=== PATIENT | male | born 2005 | race Caucasian/White ===

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

== ENCOUNTER 2023-04-18 11:07 | Emergency (ER) | payer OTHER, SELFPAY ==
--- NOTE | ~2023-04-18 | XR_ITS ---
EXAMINATION: XR soft tissue neck INDICATION: Throat/esophagus discomfort TECHNIQUE: Two views of the neck soft tissues are obtained. COMPARISON: None available FINDINGS: The neck soft tissues are unremarkable. The prevertebral soft tissues are normal. There is straightening of the cervical spine which can be positional or due to muscular spasm. IMPRESSION: 1. Unremarkable neck soft tissues. Reviewed, dictated and finalized at location F. [employer]
[2023-04-18 11:09] VITALS: BP 173/94; PULSE 113; RESP 16; TEMP 36.5; O2SAT 100
--- NOTE | 2023-04-18 12:12 | ED.GENADULT ---
HPI - General Adult General Chief complaint: Unspecified Stated complaint: clindamycin stuck in throat Time Seen by Provider: 04/18/23 11:17 Source: patient Mode of arrival: ambulatory Limitations: no limitations History of Present Illness HPI narrative: Doroteo is a 18-year-old male patient presenting to the ER today with complaints of burning of his throat. He reports 2 clindamycin pills got stuck in his throat 2 days ago. Reports that they have gone down however he is having some discomfort in his throat still. Taking the clindamycin due to an ear infection. He contacted his primary care provider and they told him he would need to come in for evaluation to determine if he had nolasco in his esophagus. He is able to swallow appropriately with mild pain. Voice is hoarse. Related Data Home Medications Medication Instructions Recorded Confirmed 5-hydroxytryptophan (5-HTP) 50 mg 50 mg PO BID 03/26/23 capsule cholecalciferol (vitamin D3) 50 50 mcg PO DAILY 03/26/23 mcg (2,000 unit) capsule dexmethylphenidate 10 mg tablet 10 mg PO DAILY 03/26/23 (Focalin) duloxetine 30 mg capsule,delayed 30 mg PO DAILY 03/26/23 release (Cymbalta) Allergies Allergy/AdvReac Type Severity Reaction Status Date / Time latex Allergy Intermediate Hives Verified 04/18/23 11:33 Penicillins Allergy Unknown Rash Verified 04/18/23 11:33 Sulfa (Sulfonamide Allergy Unknown Rash Verified 04/18/23 11:33 Antibiotics) NSAIDS (Non-Steroidal Allergy Anaphylactic Verified 04/18/23 11:33 Anti-Inflamma Shock vancomycin AdvReac Rash Verified 04/18/23 11:33 Review of Systems Review of Systems: Pertinent positives per HPI. Patient denies any fever, chills, rash, headache, visual changes, dizziness, cough, runny nose, shortness of breath, chest pain, palpitations, nausea, vomiting, diarrhea, constipation, abdominal pain, or any urinary issues. [facility] Past Medical History Medical History Allergies Arthritis Asthma Chronic paraplegia Clavicle fracture Eczema Morbid obesity due to excess calories Personal history of pathologic fracture Pinched nerve Surgical History Surgical History Hx of tympanostomy tubes Family History Family History Grandparent Alcoholism Asthma Cancer Diabetes mellitus Hypertension Depression Anxiety Cerebrovascular accident Father Asthma Depression Anxiety Sibling Anxiety Depression Social History Social History Smoking packs per day: 0 Smoking cigarettes per day: 0.0 Years smoked: 0 Smoking pack-years: 0.00 Smoking status: Never smoker Second hand tobacco smoke exposure: No Alcohol intake: never Substance use: never Substance use type: does not use Do You Feel Safe in your Home?: Yes Lack of Transportation: No Lack of Food: Sometimes True Current Housing: I Have Housing Concerned About Future Housing: Decline to Answer Difficulty Paying Gas/Electric Bills: Decline to Answer Difficulty Paying for Meds: Decline to Answer Currently Unemployed: Decline to Answer Education: High School Diploma/GED Difficulty w/ Childcare or Family Care: Decline to Answer Living arrangements: with family Gender identity (if verbalized by the patient): Male Comments At the time of my signature, I reviewed and agree with the nursing past medical, surgical, social, and family history. There is no relevant family history pertinent to the patient complaint. Exam Narrative: General: Well-developed, obese, in no apparent distress Head: Normocephalic, atraumatic Eyes: Pupils equally round and reactive to light bilaterally, EOM intact, sclera and conjunctive clear, no discharge, lids normal Ears: TMs intact and clear, ear canal
[2023-04-18 13:09] VITALS: BP 160/90; PULSE 100; RESP 18; O2SAT 100
== END 2023-04-18 13:11 | disposition home or self-care (01) ==
PROVIDERS: Emergency Provider Nurse Practitioner Family; PCP Internal Medicine Infectious Disease
DX: R07.0 Pain in throat (principal); G82.20 Paraplegia, unspecified; J45.909 Unspecified asthma, uncomplicated; E66.01 Morbid (severe) obesity due to excess calories; Z68.42 Body mass index [BMI] 45.0-49.9, adult; M19.90 Unspecified osteoarthritis, unspecified site
CPT/HCPCS: 70360; 99283

== ENCOUNTER 2023-05-10 21:29 | Emergency (ER) | payer OTHER, SELFPAY ==
--- NOTE | ~2023-05-10 | XR_ITS ---
EXAMINATION: XR chest 2V Exam Date/Time: 05/10/2023 21:44 FOOD STOREROOM CLERK HISTORY: displaced L rib Comparison: 09/18/2022. RESULT: Lines, tubes, and devices: None. Lungs and pleura: Low volumes with crowding, particularly in the lateral views, otherwise clear. Cardiomediastinal silhouette: Stable. Other: No acute osseous or upper abdominal finding. IMPRESSION: No acute cardiopulmonary process. Reviewed, dictated and finalized at location K. STOREROOM CLERK
--- NOTE | ~2023-05-10 | CT_ITS ---
EXAMINATION: CTA chest PE protocol DATE: 05/11/2023 01:54 INDICATION: Chest pain. TECHNIQUE: Computed tomography angiography (CTA) of the chest was performed with 100 mL Omnipaque-350 intravenous contrast timed to evaluate the pulmonary arteries. Coronal maximum intensity projection 3D-reconstructions were created by the technologist. Automated exposure control and iterative reconst ruction technique were employed. The dose-length product was 1071.66 mGy-cm. COMPARISON: CT abdomen and pelvis 07/10/2021 FINDINGS: There is no pneumonia or pleural effusion. The heart size is normal. No pericardial effusio n. There is no pulmonary embolus. There is diffuse hepatic steatosis. There is mild thoracic spondylo sis. IMPRESSION: 1. No pulmonary embolus. Sensitivity is moderately decreased by motion artifact. 2. Diffuse hepatic steatosis. Reviewed, dictated and finalized at location A. ATING MACHINE TYPIST IMPRESSION: 1. No pulmonary embolus. Sensitivity is moderately decreased by motion artifact . 2. Diffuse hepatic steatosis.
[2023-05-10 21:30] VITALS: BP 127/75; PULSE 121; RESP 18; TEMP 38.1; O2SAT 98
[2023-05-11 00:12] VITALS: TEMP 37.2
--- NOTE | 2023-05-11 00:41 | ECG_ITS ---
Measurements Intervals [place] Rate: 122 P: 40 [place]: 142 QRS: 92 QRSD: 85 T: 48 QT: 300 QTc: 428 Interpretive Statements SINUS TACHYCARDIA BORDERLINE RIGHT AXIS DEVIATION [QRS AXIS > 90] NONSPECIFIC ST & T-WAVE ABNORMALITY ABNORMAL RHYTHM ECG NO PREVIOUS ECG AVAILABLE FOR COMPARISON Electronically Signed On 05-11-2023 8:47:01 OCCUPATIONAL HEALTH NURSE MANAGER by Bhargav Soto M.D.
--- NOTE | 2023-05-11 00:48 | ED.GENADULT ---
HPI - General Adult General Chief complaint: Unspecified Stated complaint: mx complaints after rib put back in place Time Seen by Provider: 05/11/23 00:18 History of Present Illness HPI narrative: 18-year-old male with a history of a connective tissue disorder reports for evaluation his father at bedside for bilateral chest pain started today. Patient states he woke up this morning with a dislocated left rib. He went to his physical therapist to put it back into place and advised to go to the ER if he developed fever, worsening pain or nausea. Patient states he has developed all of the symptoms since he was discharged from his physical therapist earlier today. States he had a fever of 100.2 at home, is 100.6 upon arrival to the ER. He is reporting pain to his bilateral ribs that wraps around to his back, worse on the left side. States the pain is worse with any sort of movement. States he has a history of prior rib dislocations in the past, however he has never had issues like this before. Related Data Home Medications Medication Instructions Recorded Confirmed 5-hydroxytryptophan (5-HTP) 50 mg 50 mg PO BID 03/26/23 capsule cholecalciferol (vitamin D3) 50 50 mcg PO DAILY 03/26/23 mcg (2,000 unit) capsule dexmethylphenidate 10 mg tablet 10 mg PO DAILY 03/26/23 (Focalin) duloxetine 30 mg capsule,delayed 30 mg PO DAILY 03/26/23 release (Cymbalta) Allergies Allergy/AdvReac Type Severity Reaction Status Date / Time latex Allergy Intermediate Hives Verified 04/18/23 11:33 Penicillins Allergy Unknown Rash Verified 04/18/23 11:33 Sulfa (Sulfonamide Allergy Unknown Rash Verified 04/18/23 11:33 Antibiotics) NSAIDS (Non-Steroidal Allergy Anaphylactic Verified 04/18/23 11:33 Anti-Inflamma Shock vancomycin AdvReac Rash Verified 04/18/23 11:33 Review of Systems Review of Systems: CONSTITUTIONAL: Denies fever, chills, or sweats. EYES: Denies visual changes, redness, or discharge. ENT: Denies rhinorrhea, congestion, sore throat, or otalgia. CARDIOVASCULAR: See HPI RESPIRATORY: Denies cough or dyspnea. GASTROINTESTINAL: Denies abdominal pain, nausea, vomiting, or diarrhea. GENITOURINARY: Denies dysuria or hematuria. SKIN: Denies rash or itching. MUSCULOSKELETAL: See HPI NEUROLOGIC: Denies headache, numbness, or weakness. PSYCHIATRIC: Denies anxiety or depression. [facility] Past Medical History Medical History Allergies Arthritis Asthma Chronic paraplegia Clavicle fracture Eczema Morbid obesity due to excess calories Personal history of pathologic fracture Pinched nerve Surgical History Surgical History Hx of tympanostomy tubes Family History Family History Grandparent Alcoholism Asthma Cancer Diabetes mellitus Hypertension Depression Anxiety Cerebrovascular accident Father Asthma Depression Anxiety Sibling Anxiety Depression Social History Social History Smoking packs per day: 0 Smoking cigarettes per day: 0.0 Years smoked: 0 Smoking pack-years: 0.00 Smoking status: Never smoker Second hand tobacco smoke exposure: No Alcohol intake: never Substance use: never Substance use type: does not use Do You Feel Safe in your Home?: Yes Lack of Transportation: No Lack of Food: Sometimes True Current Housing: I Have Housing Concerned About Future Housing: Decline to Answer Difficulty Paying Gas/Electric Bills: Decline to Answer Difficulty Paying for Meds: Decline to Answer Currently Unemployed: Decline to Answer Education: High School Diploma/GED Difficulty w/ Childcare or Family Care: Decline to Answer Living arrangements: with family Gender identity (if verbalized by the patient): Male Exam Narrati
[2023-05-11] MEDS: MORPHINE SULFATE (*CRX) 4 MG/ML INJ IV PUSH (01:00)
[2023-05-11] MEDS: SODIUM CHLORIDE 0.9% IV 1,000 ML 999 ML IV CONT (01:00)
[2023-05-11 01:05] LABS: Basophils Percent Auto 0.4 % (0.2-1.2); Eosinophils Percent Auto 0.4 % (0-4.4); Hematocrit 48.7 % (42.0-52.0); Hemoglobin 16.3 g/dL (14.0-18.0); Immature Granulocyte Absolute 0.02 K/mm3 (0.00-0.031); Immature Granulocyte Percent A 0.2 % (0-0.5); Lymphocytes Absolute Auto 1.16 K/mm3 (0.9-3.2); Lymphocytes Percent Auto 12.7 % (18.3-44.2); Mean Corpuscular HGB Conc 33.5 g/dl (32-36); Mean Corpuscular Hemoglobin 27.8 pg (26-34); Mean Corpuscular Volume 83.1 fl (80-100); Monocytes Absolute Auto 0.5 K/mm3 (0.1-0.6); Monocytes Percent Auto 5.3 % (2.6-8.5); Neutrophils Absolute Auto 7.4 K/mm3 (1.3-6.7); Platelet Count Result 320 k/mm3 (150-375); Red Blood Count 5.86 M/mm3 (4.6-6.20); Red Cell Distribution Width 13.4 % (11.5-14.5); White Blood Count 9.2 K/mm3 (4.5-10.0)
[2023-05-11 01:16] LABS: Alanine Aminotransferase 72 U/L (6-50); Albumin Level 4.9 g/dL (3.5-5.1); Alkaline Phosphatase 75 U/L (38-126); Anion Gap 7 mmol/L (8-16); Aspartate Amino Transferase 35 U/L (17-59); Bilirubin,Total 0.7 mg/dL (0.2-1.3); Blood Urea Nitrogen 15 mg/dL (9-20); Calcium 9.3 mg/dL (8.4-10.2); Carbon Dioxide 29 mmol/L (22-30); Chloride 103 mmol/L (98-107); Estimated CRCL calculation 160 ml/min; Estimated Glomerular Filt Rate > 60; Glucose 102 mg/dL (65-110); Potassium 3.8 mmol/L (3.4-5.0); Sodium 139 mmol/L (137-145)
[2023-05-11 01:28] LABS: NT Pro B Type Natriuretic Pept < 20 pg/mL (19.9-100); Troponin I < 0.012 ng/mL (0.000-0.034)
[2023-05-11 01:41] LABS: Influenza A QL RT-PCR Negative (Negative); Influenza B QL RT-PCR Negative (Negative); RSV RNA, RT-PCR Negative (Negative); SARS-CoV-2 RNA PCR Negative (Negative)
[2023-05-11 01:58] VITALS: BP 143/99; PULSE 88; RESP 18; O2SAT 99
[2023-05-11 03:01] LABS: Appearance Urine Clear (Clear); Bilirubin Urine Negative (Negative); Blood Urine Negative (Negative); Color Urine Yellow (Yellow); Glucose Urine UA Negative (Negative); Ketones Urine Negative (Negative); Leukocyte Esterase Ur Negative LEU/UL (Negative); Nitrate Urine Negative (Negative); Protein Urine Negative (Negative); Urobilinogen Urine 0.2 mg/dL (<2.0); pH Urine 5.5 (5.0-9.0)
[2023-05-11 03:13] LABS: Add Urine Microscopic? NO
[2023-05-11 03:45] VITALS: BP 143/99; PULSE 98; RESP 18; TEMP 37.1; O2SAT 99
== END 2023-05-11 03:47 | disposition home or self-care (01) ==
PROVIDERS: Emergency Provider Physician Assistant; PCP Internal Medicine Infectious Disease
DX: R07.89 Other chest pain (principal); Z20.822 Contact with and (suspected) exposure to COVID-19; J45.909 Unspecified asthma, uncomplicated; G82.20 Paraplegia, unspecified; E66.01 Morbid (severe) obesity due to excess calories; Z68.42 Body mass index [BMI] 45.0-49.9, adult; M19.90 Unspecified osteoarthritis, unspecified site; Z96.22 Myringotomy tube(s) status
CPT/HCPCS: 36415; 71046; 71275; 80053; 81003; 83880; 84484; 85025; 87637; 93005; 96361; 96374; 99284; J2270; J7030; Q9967

== ENCOUNTER 2023-08-04 12:40 | Outpatient (CLI) | payer OTHER, SELFPAY ==
--- NOTE | 2023-08-04 13:30 | NEURO_ITS ---
Impression: # Complains of neck pain and numbness of upper extremities. # Normal Nerve Conduction Study without evidence of Carpal Tunnel Syndrome or ulnar neuropathy. # Normal needle/EMG exam proximally and distally. # Clinical correlation recommended. Nerve Conduction Studies Anti Sensory Summary Table Stim Site NR Peak (ms) P-T Amp (?V) Site1 Site2 Delta-P (ms) Dist (cm) Antonio (m/s) Left Median Anti Sensory (2-3nd Digit) Wrist 2.8 63.6 Wrist 2-3nd Digit 2.8 14.0 50 Wrist 2.8 56.3 Wrist 2-3nd Digit 2.8 14.0 50 Right Median Anti Sensory (2-3nd Digit) Wrist 3.0 56.5 Wrist 2-3nd Digit 3.0 14.0 47 Wrist 2.7 55.5 Wrist 2-3nd Digit 3.0 14.0 47 Left Radial Anti Sensory (Base 1st Digit) Wrist 1.8 29.3 Wrist Base 1st Digit 1.8 0.0 Right Radial Anti Sensory (Base 1st Digit) Wrist 2.7 26.1 Wrist Base 1st Digit 2.7 0.0 Left Ulnar Anti Sensory (5th Digit) Wrist 2.5 75.0 Wrist 5th Digit 2.5 14.0 56 Right Ulnar Anti Sensory (5th Digit) Wrist 2.6 64.0 Wrist 5th Digit 2.6 14.0 54 Motor Summary Table Stim Site NR Onset (ms) O-P Amp (mV) Site1 Site2 Delta-0 (ms) Dist (cm) Antonio (m/s) Left Median Motor (Abd Poll Brev) Wrist 3.1 4.4 Elbow Wrist 5.0 31.0 62 Elbow 8.1 3.8 Right Median Motor (Abd Poll Brev) Wrist 3.5 5.7 Elbow Wrist 4.9 31.0 63 Elbow 8.4 3.1 Left Ulnar Motor (Abd Dig Minimi) Wrist 2.7 7.3 A Elbow Wrist 5.8 35.0 60 A Elbow 8.5 6.4 Right Ulnar Motor (Abd Dig Minimi) Wrist 2.5 6.6 A Elbow Wrist 5.6 33.0 59 A Elbow 8.1 6.4 F Wave Studies NR F-Lat (ms) L-R F-Lat (ms) Left Median (Mrkrs) (Abd Poll Brev) 27.41 0.25 Right Median (Mrkrs) (Abd Poll Brev) 27.16 0.25 Left Ulnar (Mrkrs) (Abd Dig Min) 28.21 0.23 Right Ulnar (Mrkrs) (Abd Dig Min) 28.44 0.23 EMG Side Muscle Nerve Root Ins Act Fibs Amp Dur Recrt Comment Right 1stDorInt Ulnar C8-T1 Nml Nml Nml Nml Nml Right Ext Indicis Radial (Post Int) C7-8 Nml Nml Nml Nml Nml Right Ext Digitorum Radial (Post Int) C7-8 Nml Nml Nml Nml Nml Right BrachioRad Radial C5-6 Nml Nml Nml Nml Nml Right PronatorTeres Median C6-7 Nml Nml Nml Nml Nml Right Abd Poll Brev Median C8-T1 Nml Nml Nml Nml Nml Right ABD Dig Min Ulnar C8-T1 Nml Nml Nml Nml Nml Left 1stDorInt Ulnar C8-T1 Nml Nml Nml Nml Nml Left Ext Indicis Radial (Post Int) C7-8 Nml Nml Nml Nml Nml Left Ext Digitorum Radial (Post Int) C7-8 Nml Nml Nml Nml Nml Left BrachioRad Radial C5-6 Nml Nml Nml Nml Nml Left PronatorTeres Median C6-7 Nml Nml Nml Nml Nml Left Abd Poll Brev Median C8-T1 Nml Nml Nml Nml Nml Left ABD Dig Min Ulnar C8-T1 Nml Nml Nml Nml Nml Right Biceps Musculocut C5-6 Nml Nml Nml Nml Nml Right Triceps Radial C6-7-8 Nml Nml Nml Nml Nml Right Deltoid Axillary C5-6 Nml Nml Nml Nml Nml Left Biceps Musculocut C5-6 Nml Nml Nml Nml Nml Left Triceps Radial C6-7-8 Nml Nml Nml Nml Nml Left Deltoid Axillary C5-6 Nml Nml Nml Nml Nml MTDD
== END 2023-08-04 12:41 | disposition home or self-care (01) ==
LOC: ANHNEURO 12:41
PROVIDERS: PCP Internal Medicine Infectious Disease; Visit Provider Internal Medicine Infectious Disease
DX: M54.12 Radiculopathy, cervical region (principal)
CPT/HCPCS: 95886; 95911

== ENCOUNTER 2024-02-03 13:02 | Emergency (ER) | payer OTHER, SELFPAY ==
--- NOTE | ~2024-02-03 | CT_ITS ---
EXAMINATION: CT brain wo con DATE: 02/03/2024 15:45 INDICATION: Headache. TECHNIQUE: Computed tomography (CT) of the head was performed without intravenous contrast. The mA wa s adjusted according to patient size. Iterative reconstruction technique was employed. The dose-lengt h product was 605.33 mGy-cm. COMPARISON: Head CT 12/06/2013 FINDINGS: There is no intracranial hemorrhage, acute infarction, or abnormal intracranial mass lesion . The ventricles are normal in size. The paranasal sinuses are clear. The mastoid air cells are johanny l. The orbits are normal. IMPRESSION: 1. Normal brain. Reviewed, dictated and finalized at location B. IMPRESSION: 1. Normal brain.
--- NOTE | ~2024-02-03 | CT_ITS ---
EXAMINATION: CT cervical spine wo con DATE: 02/03/2024 15:45 INDICATION: Neck pain. TECHNIQUE: Computed tomography (CT) of the cervical spine was performed without intravenous contrast. Automated exposure control and iterative reconstruction technique were employed. The dose-length pro duct was 545.42 mGy-cm. COMPARISON: None FINDINGS: Alignment is normal. Vertebral body heights are normal. Intervertebral disc heights are nor mal. The following disc levels are specifically discussed: C2-C3: There is no uncovertebral joint osteoarthritis. There is mild right facet joint osteoarthritis . There is no neural foraminal stenosis. There is no central canal stenosis. C3-C4: There is no uncovertebral joint osteoarthritis. There is mild left facet joint osteoarthritis. There is no neural foraminal stenosis. There is no central canal stenosis. C4-C5: There is no uncovertebral joint osteoarthritis. There is no facet joint osteoarthritis. There is no neural foraminal stenosis. There is no central canal stenosis. C5-C6: There is no uncovertebral joint osteoarthritis. There is no facet joint osteoarthritis. There is no neural foraminal stenosis. There is no central canal stenosis. C6-C7: There is no uncovertebral joint osteoarthritis. There is no facet joint osteoarthritis. There is no neural foraminal stenosis. There is no central canal stenosis. C7-T1: There is no uncovertebral joint osteoarthritis. There is mild bilateral facet joint osteoarthr itis. There is no neural foraminal stenosis. There is no central canal stenosis. IMPRESSION: 1. Mild cervical facet joint osteoarthritis. Reviewed, dictated and finalized at location B.
[2024-02-03 13:23] VITALS: BP 149/85; PULSE 101; TEMP 36.9; O2SAT 98
--- NOTE | 2024-02-03 15:23 | ED.NECK ---
HPI - Neck Pain/Injury General Chief Complaint: Neck Pain/Injury <Inga Billy PA-C - Last Filed: 02/04/24 11:47> Stated Complaint: neck pain <JEN Pearson Last Filed: 02/04/24 11:47> Time Seen by Provider: 02/03/24 15:23 <JEN Pearson Last Filed: 02/04/24 11:47> Focused HPI: This is a 18 year old male that presents to the ER for headache and neck pain. Reports nausea and dizziness. Started this morning. No recent injuries. He took a cyclobenzaprine this morning with little relief. No previous history of migraines. Reports blurry vision, photophobia. Denies vomiting, new numbness or weakness. GENERAL: Well-appearing, well-nourished, and in no acute distress. HEAD: Normocephalic, atraumatic. CHEST: Clear to auscultation. ?No respiratory distress. HEART: Regular rate and rhythm.? NEURO: ?Alert and oriented x3. Patient screened in triage and initial orders placed.? ?Additional care and disposition to be based upon?diagnostic testing and treatment. <JEN Pearson Last Filed: 02/04/24 11:47> Focused HPI: This is a 18 year old male that presents to the ER for headache and neck pain. Reports nausea and dizziness. Started this morning. No recent injuries. He took a cyclobenzaprine this morning with little relief. No previous history of migraines. Reports blurry vision, photophobia. Denies vomiting, new numbness or weakness. GENERAL: Well-appearing, well-nourished, and in no acute distress. HEAD: Normocephalic, atraumatic. CHEST: Clear to auscultation. ?No respiratory distress. HEART: Regular rate and rhythm.? NEURO: ?Alert and oriented x3. Patient screened in triage and initial orders placed.? ?Additional care and disposition to be based upon?diagnostic testing and treatment. <JEN Gardiner Last Filed: 02/04/24 01:44> Source: patient <JEN Gardiner Last Filed: 02/04/24 01:44> Mode of arrival: ambulatory <Milka Goel PA-C - Last Filed: 02/04/24 01:44> Limitations: no limitations <Milka Goel PA-C - Last Filed: 02/04/24 01:44> History of Present Illness HPI Narrative: Agree with above HPI. Denies vision changes to me. Took tylenol and flexeril this morning. Patient does have history of chronic neck issues related to osteoarthritis. He sees a specialist at [facility] for this. <Milka Goel PA-C - Last Filed: 02/04/24 01:44> Related Data Home Medications: Home Medications Medication Instructions Recorded Confirmed 5-hydroxytryptophan (5-HTP) 50 mg 50 mg PO BID 03/26/23 capsule cholecalciferol (vitamin D3) 50 50 mcg PO DAILY 03/26/23 mcg (2,000 unit) capsule dexmethylphenidate 10 mg tablet 10 mg PO DAILY 03/26/23 (Focalin) <Inga Billy PA-C - Last Filed: 02/04/24 11:47> Allergies/Adverse Reactions: Allergies Allergy/AdvReac Type Severity Reaction Status Date / Time latex Allergy Intermediate Hives Verified 11/30/23 11:12 Penicillins Allergy Unknown Rash Verified 11/30/23 11:12 Sulfa (Sulfonamide Allergy Unknown Rash Verified 11/30/23 11:12 Antibiotics) NSAIDS (Non-Steroidal Allergy Anaphylactic Verified 11/30/23 11:12 Anti-Inflamma Shock vancomycin AdvReac Rash Verified 11/30/23 11:12 <Inga Billy PA-C - Last Filed: 02/04/24 11:47> Review of Systems Review of Systems: All systems reviewed & are unremarkable except as noted in HPI. <Milka Goel PA-C - Last Filed: 02/04/24 01:44> All systems reviewed & are unremarkable except as noted in HPI and below <Milka Goel PA-C - Last Filed: 02/04/24 01:44> PMFSH Past Medical History Medical History: Medical History Allergies Arthritis Asthma Cervical myelopathy Chronic paraplegia Clavicle fracture Eczema Lumbosacral radiculopathy Morbid obesity due to excess calories Neck pain Personal history of pathologic fracture Pinched nerve <Inga Billy PA-C - Last Filed: 02/04/24 11:47> Surgical History Surgical History: Surgical History Hx of tympanostomy tubes <Inga Billy PA-C - Last Filed: 02/04/24 11:47> Family History Family History: Family History Grandparent Alcoholism Asthma Cancer Diabetes mellitus Hypertension Depression Anxiety Cerebrovascular accident Father Asthma Depression Anxiety Sibling Anxiety Depression <Inga Billy PA-C - Last Filed: 02/04/24 11:47> Social History Social History: Social History Smoking packs per day: 0 Smoking cigarettes per day: 0.0 Years smoked: 0 Smoking pack-years: 0.00 Smoking status: Never smoker Second hand tobacco smoke exposure: No Alcohol intake: never Substance use: never Substance use type: does not use Do You Feel Safe in your Home?: Yes Lack of Transportation: No Lack of Food: Sometimes True Current Housing: I Have Housing Concerned About Future Housing: Decline to Answer Difficulty Paying Gas/Electric Bills: Decline to Answer Difficulty Paying for Meds: Decline to Answer Currently Unemployed: Decline to Answer Education: High School Diploma/GED Difficulty w/ Childcare or Family Care: Decline to Answer Living arrangements: with family Gender identity (if verbalized by the patient): Male <Inga Billy PA-C - Last Filed: 02/04/24 11:47> Exam Narrative: GENERAL: Well appearing, morbidly obese with BMI of 45.5, non-toxic, in no acute distress. HEAD: Normocephalic, atraumatic. EYES: PERRL/EOMI, conjunctiva clear. No significant nystagmus. NECK: TTP throughout lower midline spine and fredi paraspinal musculature. No palpable deformities. Sensation intact. No meningeal signs. RESPIRATORY: Airway patent, respirations nonlabored. Clear to auscultation bilaterally, no rales, rhonchi, wheezing. CARDIOVASCULAR: Regular rate and rhythm MUSCULOSKELETAL: Moves all extremities. No gross deformities. SKIN: Warm, dry, normal color. NEURO: A&O X3. Speech clear. Cranial nerves II-XII grossly intact. Steady gait. No ataxic movements. No focal deficits. PSYCHIATRIC: Appropriate mood and affect. Normal interaction. <JEN Gardiner Last Filed: 02/04/24 01:44> Course Vital Signs Vital signs: Vital Signs Temperature 98.5 F 02/03/24 13:23 Pulse Rate 101 H 02/03/24 13:23 Blood Pressure 149/85 H 02/03/24 13:23 Pulse Oximetry 98 02/03/24 13:23 Temperature 97.7 F 02/03/24 19:11 Pulse Rate 85 02/03/24 19:11 Respiratory Rate 18 02/03/24 19:11 Blood Pressure 144/98 H 02/03/24 19:11 Pulse Oximetry 95 02/03/24 19:11 <JEN Pearson Last Filed: 02/04/24 11:47> Vital Signs Temperature 98.5 F 02/03/24 13:23 Pulse Rate 101 H 02/03/24 13:23 Blood Pressure 149/85 H 02/03/24 13:23 Pulse Oximetry 98 02/03/24 13:23 Temperature 97.7 F 02/03/24 19:11 Pulse Rate 85 02/03/24 19:11 Respiratory Rate 18 02/03/24 19:11 Blood Pressure 144/98 H 02/03/24 19:11 Pulse Oximetry 95 02/03/24 19:11 <JEN Gardiner Last Filed: 02/04/24 01:44> MDM - Neck Pain/Injury MDM Narrative Medical decision making narrative: Patient presented to ED with 2 day history of headache and neck pain. Vital signs are stable upon arrival. Patient's headache was not sudden in onset or maximal in severity. There are no focal neurological deficits on exam. Subarachnoid hemorrhage is felt to be unlikely at this time. CT brain was unremarkable. CT cervical spine showing evidence of osteoarthritis, no acute osseous abnormality. There is no history of fever and neck is supple on evaluation without meningeal signs. Meningitis is felt to be unlikely. He has focal tenderness to palpation throughout bilateral paraspinal musculature. No evidence of cord compression. No numbness reports throughout extremities. Sensation is intact. No traumatic history or signs of trauma on evaluation. No vision changes or ocular signs of acute glaucoma. Patient feeling much better after migraine cocktail and muscle relaxers. Patient's headache and neck pain is felt to be benign cephalgia/musculoskeletal etiology/cervical strain. Reasonable for further outpatient management. He feels comfortable going home. Will send in prescription for muscle relaxers and lidocaine patches for home. Advised patient to follow with PCP for further evaluation. Given reasons to return. He agrees with plan. Discharged in stable condition. <Milka Goel PA-C - Last Filed: 02/04/24 01:44> Medical Records Attestation: I reviewed the patient's medical records. <JEN Gardiner Last Filed: 02/04/24 01:44> Imaging Data Attestation: I personally reviewed and interpreted this imaging study as follows: <JEN Gardiner Last Filed: 02/04/24 01:44> Radiologist's impression: ITS Impressions Head CT 02/03/24 15:47 IMPRESSION: 1. Normal brain. Cervical Spine CT 02/03/24 15:51 IMPRESSION: 1. Mild cervical facet joint osteoarthritis. <JEN Gardiner Last Filed: 02/04/24 01:44> Critical Care Time Critical Care Time Critical Care Time: No <JEN Pearson Last Filed: 02/04/24 11:47> Discharge Plan Discharge Clinical Impression: Headache Qualifiers: Headache type: unspecified Headache chronicity pattern: acute headache Intractability: not intractable Qualified Code(s): R51.9 - Headache, unspecified Cervical strain Qualifiers: Encounter type: initial encounter Qualified Code(s): S16.1XXA - Strain of muscle, fascia and tendon at neck level, initial encounter <JEN Pearson Last Filed: 02/04/24 11:47> Patient Disposition: Home, Self-Care <JEN Pearson Last Filed: 02/04/24 11:47> Condition: Stable <Inga Billy PA-C - Last Filed: 02/04/24 11:47> Instructions: Antibiotic Form, Cervical Strain (ED), Migraine Headache (ED), Acute Headache (ED) <JEN Pearson Last Filed: 02/04/24 11:47> Additional Instructions: Stay well hydrated. Recommend plenty of rest, low light/low stimulus environment. Continue Tylenol as needed for pain. You may use ice/heat, lidocaine patches to area of pain. Take muscle relaxers as needed and prescribed. Recommend taking these at night as they may cause sedation. Do not drive, operate heavy machinery, drink alcohol while on muscle relaxers as this may cause further sedation. Follow-up with your primary care doctor for further evaluation if needed. Return to the ED if you experience worsening or severe pain, injury, numbness, fevers, unable to keep down food or drink, or any other symptoms of concern. <Inga Billy PA-C - Last Filed: 02/04/24 11:47> Prescriptions: New methocarbamol 750 mg tablet 1,500 mg PO TID PRN (Reason: muscle spasm) Qty: 15 0RF lidocaine 5 % adhesive patch,medicated 1 patch topical DAILY Qty: 15 0RF Rx Instructions: leave on most painful area for up to 12 hrs No Action cholecalciferol (vitamin D3) 50 mcg (2,000 unit) capsule 50 mcg PO DAILY dexmethylphenidate [Focalin] 10 mg tablet 10 mg PO DAILY 5-hydroxytryptophan (5-HTP) 50 mg capsule 50 mg PO BID gabapentin 600 mg tablet 600 mg PO TID Qty: 90 3RF <Inga Billy PA-C - Last Filed: 02/04/24 11:47> Follow-up/Referrals: [facility]une[facility] [Primary Care Provider] - <Inga Billy PA-C - Last Filed: 02/04/24 11:47> Time of Disposition: 19:42 <JEN Pearson Last Filed: 02/04/24 11:47> 19:42 <JEN Gardiner Last Filed: 02/04/24 01:44>
[2024-02-03 15:31] VITALS: RESP 20
[2024-02-03] MEDS: SODIUM CHLORIDE 0.9% IV 1,000 ML 999 ML IV CONT (17:43)
[2024-02-03] MEDS: diphenhydrAMINE HCl INJ 50 MG/ML VIAL 25 MG IV PUSH (17:44)
[2024-02-03] MEDS: METOCLOPRAMIDE HCL INJ 10 MG/2 ML VIAL IV PUSH (17:44)
[2024-02-03] MEDS: dexAMETHasone SOD PHOS INJ 10 MG/ML 1 ML VIAL IV PUSH (19:07)
[2024-02-03] MEDS: diazePAM INJ (*CRX) 10 MG/2 ML SYRINGE 2.5 MG IV PUSH (19:08)
[2024-02-03 19:11] VITALS: BP 144/98; PULSE 85; RESP 18; TEMP 36.5; O2SAT 95
== END 2024-02-03 20:00 | disposition home or self-care (01) ==
PROVIDERS: Emergency Provider Physician Assistant; PCP Internal Medicine Infectious Disease
DX: R51.9 Headache, unspecified (principal); S16.1XXA Strain of muscle, fascia and tendon at neck level, initial encounter; E66.01 Morbid (severe) obesity due to excess calories; Z68.42 Body mass index [BMI] 45.0-49.9, adult; G82.20 Paraplegia, unspecified
CPT/HCPCS: 70450; 72125; 96361; 96374; 96375; 99284; A9270; J1100; J1200; J2765; J3360; J7030